=== PATIENT | female | born 1990 | race African-American/Black ===

== ENCOUNTER 2017-01-01 10:58 | Emergency (ER) | payer BC ==
[2017-01-01] MEDS ORDERED: ERYTHROMYCIN 0.5% OPH OINTMENT 3.5 GM (ER DISP) OD PRN (11:37)
--- NOTE | 2017-01-01 11:39 | ER Document Report ---
ED Eye Complaint - General Chief Complaint: Eye Pain Stated Complaint: SWOLLEN EYE Time Seen by Provider: 01/01/17 11:16 Mode of Arrival: Ambulatory Information source: POA - Power of Bobtail Driver TRAVEL OUTSIDE OF THE [place] IN LAST 30 DAYS: No - HPI Patient complains to provider of: Right eye swelling Onset: This morning Eye location: Right Injury: No Quality of pain: No pain Associated symptoms: Redness, Eyelid swelling Notes: Patient is a 26-year-old female presenting to the emergency room today complaining of right upper eyelid swelling that she noted upon awakening this morning, she denies any eye drainage, no pain, no fevers, no injury, no history of similar symptoms previously, she reports the area is itchy - Related Data Allergies/Adverse Reactions: shellfish derived Allergy (Verified 01/01/17 11:04) Past Medical History - General Information source: Patient - Social History Smoking Status: Never Smoker Family History: Reviewed & Not Pertinent Renal/ Medical History: Denies: Hx Peritoneal Dialysis Review of Systems - Review of Systems Constitutional: No symptoms reported EENT: See HPI Cardiovascular: No symptoms reported Respiratory: No symptoms reported Gastrointestinal: No symptoms reported Genitourinary: No symptoms reported Female Genitourinary: No symptoms reported Musculoskeletal: No symptoms reported Skin: No symptoms reported Hematologic/Lymphatic: No symptoms reported Neurological/Psychological: No symptoms reported -: Yes All other systems reviewed and negative Physical Exam - Vital signs Vitals: Temp Pulse Resp BP Pulse Ox 98.7 F 90 18 151/106 H 100 01/01/17 11:06 01/01/17 11:06 01/01/17 11:06 01/01/17 11:06 01/01/17 11:06 - Notes Notes: - General General appearance: Appears well, Alert In distress: None - HEENT Head: Normocephalic, Atraumatic Eyes: Right upper eyelid swelling, no erythema, no discrete lesion or mass Conjunctiva: Normal Extraocular movements intact: Yes Eyelashes: Normal Pupils: PERRL - Respiratory Respiratory status: No respiratory distress - Cardiovascular Rhythm: Regular - Abdominal Inspection: Normal - Back Back: Normal - Extremities General upper extremity: Normal inspection General lower extremity: Normal inspection - Neurological Neuro grossly intact: Yes Orientation: AAOx4 Tigist Coma Scale Eye Opening: Spontaneous Tigist Coma Scale Verbal: Oriented [place] Coma Scale Motor: Obeys Commands Tigist Coma Scale Total: 15 - Psychological Associated symptoms: Normal affect, Normal mood - Skin Skin Temperature: Warm Skin Moisture: Dry Skin Color: Normal Course - Re-evaluation Re-evalutation: 01/01/17 12:15 Physical exam findings consistent with internal hordeolum, patient started on erythromycin ointment ophthalmic, advised to follow-up with a primary care provider and/or customer service attendant or return if symptoms worsen, patient acknowledges understanding and agreement with this plan - Vital Signs Vital signs: Temp Pulse Resp BP Pulse Ox 98.7 F 73 18 147/89 H 99 01/01/17 11:06 01/01/17 12:00 01/01/17 12:00 01/01/17 12:00 01/01/17 12:00 Discharge - Discharge Clinical Impression: Sty, internal Qualifiers: Laterality: right Eyelid: upper Qualified Code(s): H00.021 - Hordeolum internum right upper eyelid Condition: Stable Disposition: HOME, SELF-CARE Instructions: Denis ([facility]) Additional Instructions: Follow up with your primary care provider in one to 2 days. Return to the emergency room immediately if symptoms worsen or any additional concerns. Prescriptions: Erythromycin Base [Erythromycin] 1 applic OP TID #1 tu Forms: Return to Work
[2017-01-01 12:09] VITALS: BP 147/89
== END 2017-01-01 12:00 | disposition home or self-care (01) ==
LOC: ER 10:58
DX: H00.021 Hordeolum internum right upper eyelid (principal); H57.11 Ocular pain, right eye; Z91.013 Allergy to seafood
CPT/HCPCS: 99283

== ENCOUNTER 2017-11-12 08:31 | Emergency (ER) | payer BC ==
--- NOTE | 2017-11-12 10:13 | ER Document Report ---
ED General - General Chief Complaint: Vaginal Bleeding Stated Complaint: BACK AND ABDOMINAL PAIN Time Seen by Provider: 11/12/17 09:58 TRAVEL OUTSIDE OF THE [place] IN LAST 30 DAYS: No - HPI Patient complains to provider of: Vaginal bleeding Notes: Patient coming in for evaluation of vaginal bleeding. Patient states recently started control medication. Patient states has been bleeding for the next 9 days. Patient states having no dizziness weakness patient states slightly nauseated with intermittent vomiting. Patient states increased lower back pain no dysuria. Patient denies any trauma resting comfortably upon my evaluation - Related Data Allergies/Adverse Reactions: shellfish derived Allergy (Verified 11/12/17 08:32) Past Medical History - Social History Smoking Status: Never Smoker Chew tobacco use (# tins/day): No Frequency of alcohol use: None Drug Abuse: None Family History: Reviewed & Not Pertinent Patient has suicidal ideation: No Patient has homicidal ideation: No Renal/ Medical History: Denies: Hx Peritoneal Dialysis Review of Systems - Review of Systems Constitutional: No symptoms reported EENT: No symptoms reported Cardiovascular: No symptoms reported Respiratory: No symptoms reported Gastrointestinal: No symptoms reported, Nausea Genitourinary: No symptoms reported Female Genitourinary: Vaginal bleeding Musculoskeletal: No symptoms reported Skin: No symptoms reported Hematologic/Lymphatic: No symptoms reported Neurological/Psychological: No symptoms reported -: Yes All other systems reviewed and negative Physical Exam - Vital signs Vitals: Temp Pulse Resp BP Pulse Ox 98.4 F 73 16 143/100 H 98 11/12/17 08:41 11/12/17 08:41 11/12/17 08:41 11/12/17 08:41 11/12/17 08:41 Interpretation: Normal - General General appearance: Appears well, Alert - HEENT Head: Normocephalic, Atraumatic Eyes: Normal Pupils: PERRL - Respiratory Respiratory status: No respiratory distress Chest status: Nontender Breath sounds: Normal Chest palpation: Normal - Cardiovascular Rhythm: Regular Heart sounds: Normal auscultation Murmur: No - Abdominal Inspection: Normal Distension: No distension Bowel sounds: Normal Tenderness: Nontender Organomegaly: No organomegaly - Back Back: Normal, Nontender - Extremities General upper extremity: Normal inspection, Nontender, Normal color, Normal ROM , Normal temperature General lower extremity: Normal inspection, Nontender, Normal color, Normal ROM , Normal temperature, Normal weight bearing. No: Lenin's sign - Neurological Neuro grossly intact: Yes Cognition: Normal Orientation: AAOx4 [place] Coma Scale Eye Opening: Spontaneous Tig[place] Coma Scale Verbal: Oriented [place] Coma Scale Motor: Obeys Commands Tigist Coma Scale Total: 15 Speech: Normal Motor strength normal: LUE, RUE, LLE, RLE Sensory: Normal - Psychological Associated symptoms: Normal affect, Normal mood - Skin Skin Temperature: Warm Skin Moisture: Dry Skin Color: Normal Course - Re-evaluation Re-evalutation: 11/12/17 20:16 No signs of anemia requiring blood transfusion at this time. Patient with a fibroid uterus. Patient was encouraged follow-up with FRONT LINE SUPERVISOR. Patient was encouraged to take Tylenol Motrin for pain control. - Vital Signs Vital signs: Temp Pulse Resp BP Pulse Ox 98.4 F 100 17 140/88 H 100 11/12/17 08:41 11/12/17 12:28 11/12/17 12:28 11/12/17 12:28 11/12/17 12:28 - Laboratory Result Diagrams: 11/12/17 10:03 11/12/17 10:03 Laboratory results interpreted by me: 11/12/17 11/12/17 11/12/17 10:03 10:03 10:20 WBC 10.8 H Hgb 11.6 L Hct 35.4 L RDW 14.9 H Seg Neutrophils % 84.1 H Monocytes % 1.7 L Absolute Neutrophils 9.0 H Glucose 121 H Urine Protein 30 H Urine Blood LARGE H Urine Urobilinogen 2.0 H Discharge - Discharge Clinical Impression: Dysfunctional uterine bleeding Fibroid uterus Qualifiers: Uterine leiomyoma location: unspecified location Qualified Code(s): D25.9 - Leiomyoma of uterus, unspecified Condition: Good Disposition: HOME, SELF-CARE Instructions: Dysfunctional Uterine Bleeding ([facility]), [facility] [facility] Additional Instructions: Ultrasound today shows signs of fibroids within the uterus pecans cause heavy prolonged menstrual cycles. Lab work does not show any signs of significant anemia that will require blood transfusions. Would recommend to start taking some iron tablets while your bleeding. Also recommend following up with your OB /SOUND RECORDING TECHNICIAN for further evaluation of the control that you are on. Return to ER symptoms worsen I recommend taking Tylenol Motrin together for your pain control. Prescriptions: Ibuprofen [Motrin 600 mg Tablet] 600 mg PO Q8HP PRN #21 tablet PRN Reason: Ferrous Sulfate [Iron] 325 mg PO DAILY #30 tablet Forms: Return to Work Referrals: CHANG GILLIAM MD [Primary Care Provider] - Follow up as needed
[2017-11-12 10:17] LABS: ABSOLUTE EOSINOPHILS # (AUTO) 0.1 10^3/uL (0.0-0.6); ABSOLUTE LYMPHOCYTES (AUTO) 1.4 10^3/uL (0.5-4.7); ABSOLUTE MONOCYTES (AUTO) 0.2 10^3/uL (0.1-1.4); BASOPHILS % (AUTO) 0.3 % (0-2); EOSINOPHILS % (AUTO) 0.5 % (0-6); HEMATOCRIT 35.4 % (36.0-47.0); HEMOGLOBIN 11.6 g/dL (12.0-15.5); LYMPHOCYTES % (AUTO) 13.4 % (13-45); MEAN CORPUSCULAR HGB CONC 32.8 g/dL (32.0-36.0); MEAN CORPUSCULAR VOLUME 92 fl (80-97); MONOCYTES % (AUTO) 1.7 % (3-13); PLATELET COUNT 347 10^3/uL (150-450); RED BLOOD COUNT 3.86 10^6/uL (3.72-5.28); RED CELL DISTRIBUTION WIDTH 14.9 % (11.5-14.0); SEGMENTED NEUTROPHILS % (AUTO) 84.1 % (42-78); TOTAL CELLS COUNTED % (AUTO) 100 %; WHITE BLOOD COUNT 10.8 10^3/uL (4.0-10.5)
[2017-11-12 10:30] LABS: ALANINE AMINOTRANSFERASE 23 U/L (9-52); ALBUMIN 4.1 g/dL (3.5-5.0); ALKALINE PHOSPHATASE 57 U/L (38-126); ANION GAP 14 (5-19); ASPARTATE AMINO TRANSFERASE 23 U/L (14-36); BILIRUBIN,DIRECT 0.2 mg/dL (0.0-0.4); BILIRUBIN,TOTAL 0.6 mg/dL (0.2-1.3); BLOOD UREA NITROGEN 7 mg/dL (7-20); CALCIUM 8.9 mg/dL (8.4-10.2); CARBON DIOXIDE 22 mmol/L (22-30); CHLORIDE 107 mmol/L (98-107); GLUCOSE 121 mg/dL (75-110); LIPASE 25.4 U/L (23-300); POTASSIUM 4.6 mmol/L (3.6-5.0); SODIUM 143.4 mmol/L (137-145); TOTAL PROTEIN 7.1 g/dL (6.3-8.2)
[2017-11-12 10:43] LABS: APPEARANCE,URINE SLIGHTLY-CLOUDY; BILIRUBIN,URINE NEGATIVE (NEGATIVE); COLOR,URINE YELLOW; GLUCOSE, URINE NEGATIVE (NEGATIVE); KETONES,URINE NEGATIVE (NEGATIVE); LEUKOCYTE ESTERASE,URINE NEGATIVE (NEGATIVE); NITRITE,URINE NEGATIVE (NEGATIVE); PROTEIN,URINE 30 mg/dL (NEGATIVE); URINE SPECIFIC GRAVITY 1.025
--- NOTE | 2017-11-12 11:48 | RADIOLOGY REPORT (SQ) ---
EXAM DESCRIPTION: U/S NON-OB PELVIS LTD W/O DOP COMPLETED DATE/TIME: 11/12/2017 11:25 am REASON FOR STUDY: increased bleeding n/v pain fibroids? COMPARISON: None. TECHNIQUE: Dynamic and static grayscale images acquired of the pelvis via transvaginal approach and recorded on PACS. Additional selected color Doppler and spectral images recorded. LIMITATIONS: None. FINDINGS: UTERUS: The uterus measures 11 x 5.4 by 6.1 cm. Extended from left side of the uterus the re is a heterogeneous mass measuring 2.9 x 2.8 x 3.1 cm consistent with fibroid. The endometrial str ipe is normal measuring 0.6 cm. The cervix is normal measuring 4.3 cm in length. CERVIX: Nabothian cysts are noted. RIGHT OVARY AND DOPPLER: Nonvisualized. LEFT OVARY AND DOPPLER: Nonvisualized. FREE FLUID: None noted. OTHER: No other significant finding. IMPRESSION: Findings consistent with uterine fibroid extending from the left side of the uterus deonte uring 2.9 x 2.8 x 3.1 cm. TECHNICAL DOCUMENTATION: JOB ID: [id number] ME-[id number] 2010 [employer]- All Rights Reserved Rev-09/08 Reading location - IP/workstation name: [email or web address]
[2017-11-12 12:29] VITALS: BP 140/88
== END 2017-11-12 12:31 | disposition home or self-care (01) ==
LOC: ER 08:31
DX: D25.9 Leiomyoma of uterus, unspecified (principal); N93.8 Other specified abnormal uterine and vaginal bleeding; R11.2 Nausea with vomiting, unspecified; M54.5 Low back pain; Z91.013 Allergy to seafood
CPT/HCPCS: 36415; 76857; 80053; 81001; 83690; 84702; 85025; 99284

== ENCOUNTER 2017-12-07 11:31 | Day surgery (SDC) | payer BC ==
[2017-12-06 11:23] LABS: APPEARANCE,URINE SLIGHTLY-CLOUDY; BILIRUBIN,URINE NEGATIVE (NEGATIVE); COLOR,URINE YELLOW; GLUCOSE, URINE NEGATIVE (NEGATIVE); KETONES,URINE NEGATIVE (NEGATIVE); LEUKOCYTE ESTERASE,URINE MODERATE (NEGATIVE); NITRITE,URINE NEGATIVE (NEGATIVE); PROTEIN,URINE NEGATIVE (NEGATIVE); URINE SPECIFIC GRAVITY 1.019; UROBILINOGEN,URINE NEGATIVE mg/dL (<2.0)
[2017-12-06 14:33] LABS: HEMATOCRIT 29.8 % (36.0-47.0); HEMOGLOBIN 9.7 g/dL (12.0-15.5); MEAN CORPUSCULAR HEMOGLOBIN 28.3 pg (27.0-33.4); MEAN CORPUSCULAR HGB CONC 32.5 g/dL (32.0-36.0); PLATELET COUNT 432 10^3/uL (150-450); RED BLOOD COUNT 3.42 10^6/uL (3.72-5.28); RED CELL DISTRIBUTION WIDTH 14.5 % (11.5-14.0)
[2017-12-06 14:35] LABS: MEAN CORPUSCULAR VOLUME 87 fl (80-97)
[~2017-12-07 11:31] MED LIST: LACTATED RINGERS 1000 ML IV PRN; LIDOCAINE 0.5% INJ-PF (5 MG/ML) 50 ML SDV SUBCUT PRN
[2017-12-07] MEDS ORDERED: MIDAZOLAM 2 MG/2 ML INJ ONE (12:58)
[2017-12-07] MEDS ORDERED: PROPOFOL INJ 200 MG/20 ML VIAL IV ONE (12:58)
[2017-12-07] MEDS ORDERED: FENTANYL CITRATE INJ/PF 100 MCG/2 ML AMPUL ONE (12:58)
[2017-12-07] MEDS ORDERED: ONDANSETRON HCL INJ/PF 4 MG/2 ML SDV ONE (12:58)
[2017-12-07] MEDS ORDERED: MORPHINE SULFATE 10 MG/ML INJ IV PRN (13:32)
[2017-12-07] MEDS ORDERED: PROMETHAZINE HCL INJ 25 MG/1 ML VIAL IV PRN ×4 (13:32→14:41)
[2017-12-07] MEDS ORDERED: MEPERIDINE HCL/PF INJ 25 MG/1 ML DISP.SYRIN IV PRN ×2 (13:32→14:41)
[2017-12-07] MEDS ORDERED: OXYCODONE-ACETAMINOPHEN 5-325 MG TABLET PO PRN ×6 (13:32→14:41)
[2017-12-07] MEDS ORDERED: FENTANYL CITRATE INJ/PF 100 MCG/2 ML AMPUL IV PRN ×6 (13:32→14:41)
[2017-12-07] MEDS ORDERED: DIPHENHYDRAMINE HCL 50 MG/ML VIAL IV PRN ×2 (13:32→14:41)
--- NOTE | 2017-12-07 14:16 | OPERATIVE REPORT E ---
Operative Report NAME: VON AYALA : 1990 AGE: 27Y DATE OF SURGERY: 12/07/2017 ROOM: PREOPERATIVE DIAGNOSIS: Abnormal uterine bleeding, thickened endometrium, a cystic appearance on sonography. POSTOPERATIVE DIAGNOSIS: Abnormal uterine bleeding, thickened endometrium, a cystic appearance on sonography. SURGEON: ANTHONY TORREZ MD ANESTHESIOLOGIST: NATHANAEL CASTELLANOS MD ANESTHESIA: Conscious sedation. FINDINGS: The uterus sounded to approximately 10 cm, thickened, hyperplastic appearing endometrial lining. No polyps or fibroids noted. COMPLICATIONS: None. ESTIMATED BLOOD LOSS: 20 mL. SPECIMENS REMOVED: Endometrial curettings. PROCEDURE: Hysteroscope, dilation and curettage. DESCRIPTION OF PROCEDURE: The patient was taken to the operating room, prepared and draped in the normal sterile fashion in the dorsal lithotomy position. Under sterile conditions, the in-and-out catheter was performed draining approximately 20 mL of clear urine. A sterile speculum was placed in the vagina and the cervix was grasped with a single-tooth tenaculum on the anterior lip. The cervix was prepped with Hibiclens due to the patient's Betadine allergy. The uterine sound was then inserted through the cervical os and the uterus was sounded approximately 10 cm. The cervix was then dilated to accommodate a 5 mm hysteroscope, which was placed through the cervix after dilation without difficulty in the endometrial cavity, inspected with the above findings noted. The scope was removed and the sharp curettage was placed through the cervix and the endometrial lining was carefully curettaged with multiple passes without difficulty and good tissue obtained with a curettage. Once all the tissue that we could obtain was completed, the instruments were removed. The patient was taken to the PACU in stable condition and the sponge, lap, and needle counts were correct x2. DICTATING PHYSICIAN: ANTHONY TORREZ M.D. [id number] PHY#: [id number] ID: [id number] JOB#: [id number] ACCT: [id number] cc:ANTHONY TORREZ M.D. >
[2017-12-07] MEDS ORDERED: MORPHINE SULFATE 10 MG/ML INJ IM PRN (14:20)
[2017-12-07] MEDS ORDERED: IBUPROFEN 800 MG TABLET PO PRN (14:20)
[2017-12-07 15:41] VITALS: BP 125/86
== END 2017-12-07 15:52 | disposition home or self-care (01) ==
LOC: OROUT 11:31
PROVIDERS: ATTEND Obstetrics & Gynecology
DX: N84.0 Polyp of corpus uteri (principal); N93.9 Abnormal uterine and vaginal bleeding, unspecified; N92.6 Irregular menstruation, unspecified; E66.9 Obesity, unspecified; D64.9 Anemia, unspecified; Z01.818 Encounter for other preprocedural examination; Z79.899 Other long term (current) drug therapy; Z68.42 Body mass index [BMI] 45.0-49.9, adult
CPT/HCPCS: 36415; 85027; 81025; 81001; 88305 ×2; 58558; J2250; J3010; J2405; J2704; 952

== ENCOUNTER → 2018-02-23 | Outpatient (CLI) | payer BC, OTHER | LOC: OD 08:28 | PROVIDERS: ATTEND Student in an Organized Health Care Education/Training Program | DX: O20.0 Threatened abortion (principal) | CPT/HCPCS: 36415; 84702 ==